=== PATIENT | male | born 1960 | race Caucasian/White ===

== ENCOUNTER 2021-01-23 11:36 | Emergency (ER) | payer OTHER ==
--- OUTSIDE RECORDS SUMMARY | 2021-01-23 11:39 | XMS REPORT | Continuity of Care Document ---
:1960 Author Organization [facility] t Address [address] [place] [address] Dr. Bales [address] [place] [id number] Care Team Providers Name Role Phone Feliciano Grace MD Attending Clinician Problems Condition Condition Condition Status Onset Resolution Last Treating Co mments Source Name Details Category Date Date Treatment Clinician Date Diabetes Diabetes Problem Active 2018-06 [place] mellitus Mellitus 2-19 da 00:00: Medical 00 Group Hyperchole Hyperchole Problem Active 2018-06 [facility] sterolemia sterolemia 2-19 da 00:00: Medical 00 Group Hypertensi Hypertensi Problem Active 2018-06 [facility] ve ve 2-19 da disorder Disorder 00:00: Medica l 00 Group Body mass Body mass Diagnosis Active [facility] index index [facility] - (BMI) (BMI) [facility] 45.0-49.9, 45.0-49.9, l adult adult Outpati ent Clinics Morbid Morbid Diagnosis Active [facility] (severe[facility] (severe[facility] - obesity obesity [facility] due to due to l excess excess Outpati calories calories ent Clinics Kidney Kidney Diagnosis Active [facility] disease disease [facility] Allergies, Adverse Reactions, Alerts Allergy Allergy Status Severity Reaction(s) Onset Inactive Treating Comm ents Source Name Type Date Date Clinician Codeine Allergy Active [place] codeine Adverse Active Info Not [facility] Reaction Available [facility] Social History Smoking Status Start Date Stop Date Source Former Smoker [facility] Medications Ordered Filled Start Stop Current Ordering Indication Dosage Frequency Signature Comments Components Source Medication Medication Date Date Medication? Clinician (SIG) Name Name citalopram citalopram No citalopram [place] 20 mg 20 mg 20 mg da tablet tablet tablet Medical Group Amoxicillin Amoxicillin Yes Roxanne as [facility] -Pot -Pot [place] directed [facility] - Clavulanate Clavulanate [facility] hydrocodone hydrocodone No hydrocodon [place] 7.5 7.5 e 7.5 da mg-acetamin mg-acetamin mg-acetami Medical ophen 325 ophen 325 nophen 325 Group mg tablet mg tablet mg tablet PRN PRN PRN Potassium Potassium Yes Roxanne [address] [facility] Bicarb-Citr Bicarb-Citr Neelam dissolve [facility] - ic Acid ic Acid in 3 to 4 Flex filippo ounces l cold water Outpati or juice ent Clinics lisinopril lisinopril No lisinopril [place] 10 10 10 da mg-hydrochl mg-hydrochl mg-hydroch Medical orothiazide orothiazide [facility] Group 12.5 mg 12.5 mg de 12.5 mg tablet tablet tablet Meloxicam Meloxicam Yes Roxanne as [facility] [place] directed [facility] meloxicam meloxicam No meloxicam [place] 15 mg 15 mg 15 mg da tablet tablet tablet Medical Group Hydrocodone Hydrocodone Yes Roxanne [address] [facility] -Acetaminop -Acetaminop Neelam as needed [facility] metoprolol metoprolol No metoprolol [place] succinate succinate succinate da ER 25 mg ER 25 mg ER 25 mg Med ical tablet,exte tablet,exte tablet,ext Group nded nded ended release 24 release 24 release 24 hr hr hr Isosorbide Isosorbide Yes Roxanne [address] [facility] Mononitrate Mononitrate [place] in the [facility] - morning [facility] l Outpati ent Clinics pantoprazol pantoprazol No pantoprazo [place] e 40 mg e 40 mg le 40 mg da tablet,jeremiah tablet,jeremiah tablet,del Medical yed release yed release ayed G roup release Pantoprazol Pantoprazol Yes Roxanne [address] [facility] e Sodium e Sodium [place] Kari es [facility] simvastatin simvastatin No simvastati [place] 40 mg 40 mg n 40 mg da tablet tablet tablet Medical Group Simvastatin Simvastatin Yes Roxanne [address] [facility] Neelam in the [facility] Stiolto Stiolto No Stiolto [place] [facility] Respimat Respimat Respimat da 2.5 mcg-2.5 2.5 mcg-2.5 2.5 M edical mcg/actuati mcg/actuati mcg-2.5 Group on solution on solution mcg/actuat for for ion inhalation inhalation solution for inhalation Metformin Metformin Yes Roxanne [address] [facility] HCl HCl [place] with a [facility] - meal [facility] Lisinopril- Lisinopril- Yes Roxanne [address] [facility] Hydrochloro Hydrochloro Neelam [facility] - thiazide thiazide [facility] aspirin 81 aspirin 81 No 1 Q1D aspirin 81 [place] mg mg mg da tablet,jeremiah tablet,jeremiah tablet,del Medical yed release yed release ayed G roup Take 1 Take 1 release tablet tablet Take 1 every day every day tablet by oral by oral every day route. route. by oral route. Vital Signs Vital Name Observation Time Observation Value Comments Source BP Diastolic 2019-05-30 00:00:00 70 mm[facility]Hg[facility] Height 2019-05-30 00:00:00 70 [facility] BMI (Body Mass 2019-05-30 00:00:00 48.9 kg/m2 [facility]) Group BP Systolic 2019-05-30 00:00:00 142 mm[Hg] [facility] Body Weight 2019-05-30 00:00:00 340.5 [lb_av] [facility] Procedures This patient has no known procedures. Encounters Start End Encounter Admission Attending Care Care Encounter Source Date/Time Date/Time Type Type Clinicians Facility Department ID 2019-07-11 2019-07-11 Office MILIND Grace [id number] 09:07:26 10:43:51 Visit Ty Wiggins AMBULATOR [id number] Y [id number] 2019-06-24 2019-06-24 [facility] [id number] [facility] [address] 10:15:00 10:15:00 t Specialty/U [facility] 2019-05-30 2019-05-30 Surjit WILSON [place] - [id number] M [facility] 00:00:00 00:00:00 Leonard James MD: Medical [facility] [address], [place] [address] , Ph. [phone] Results Test Description Test Time Test Comments Results Result Comments Source Comprehensive Metabolic Panel 2019-05-24 15:06:37 Test Item Value Reference Range Interpretation Comme nts Sodium Level (test code = 139.0 mmol/L 135.0-145.0 Sodium Level) Potassium Level (test code = 5.3 mmol/L 3.5-5.1 H Potassium Level) Chloride Level (test code = 97 mmol/L 98-105 L Chloride Level) CO2 (test code = CO2) 25 mmol/L 22-29 Anion Gap (test code = Anion 17 mmol/L 7-16 H Gap) BUN (test code = BUN) 15.70 mg/dL 6.00-20.00 Creatinine Level (test code 1.00 mg/dL 0.70-1.20 = Creatinine Level) BUN/Creat Ratio (test code = 16 N BUN/Creat Ratio) Glucose Level (test code = 98 mg/dL 70-115 Glucose Level) Calcium Level (test code = 10.2 mg/dL 8.3-10.5 Calcium Level) Alk Phos (test code = Alk 359 U/L 40-129 H Phos) Bilirubin Total (test code = 2.3 mg/dL 0.1-0.9 H Bilirubin Total) Albumin Level (test code = 3.8 g/dL 3.5-5.2 Albumin Level) Protein Total (test code = 7.2 g/dL 6.4-8.3 Protein Total) ALT (test code = ALT) 131 U/L 1-41 H AST (test code = AST) See Comments U/L 1-40 N Sp ecimen hemolyzed. AST 102 Globulin (test code = 3.4 g/dL 2.9-3.1 H Globulin) A/G Ratio (test code = A/G 1.1 ratio N Ratio) Comprehensive Metabolic [id number] 15:06:37 Test Item Value Reference Range Interpretation Comments Sodium Level (test 139.0 mmol/L 135.0-145.0 code = Sodium Level) Potassium Level 5.3 mmol/L 3.5-5.1 H (test code = Potassium Level) Chloride Level 97 mmol/L 98-105 L (test code = Chloride Level) CO2 (test code = 25 mmol/L 22-29 CO2) Anion Gap (test 17 mmol/L 7-16 H code = Anion Gap) BUN (test code = 15.70 mg/dL 6.00-20.00 BUN) Creatinine Level 1.00 mg/dL 0.70-1.20 (test code = Creatinine Level) BUN/Creat Ratio 16 N (test code = BUN/Creat Ratio) Glucose Level (test 98 mg/dL 70-115 code = Glucose Level) Calcium Level (test 10.2 mg/dL 8.3-10.5 code = Calcium Level) Alk Phos (test code 359 U/L 40-129 H = Alk Phos) Bilirubin Total 2.3 mg/dL 0.1-0.9 H (test code = Bilirubin Total) Albumin Level (test 3.8 g/dL 3.5-5.2 code = Albumin Level) Protein Total (test 7.2 g/dL 6.4-8.3 code = Protein Total) ALT (test code = 131 U/L 1-41 H ALT) AST (test code = See Comments U/L 1-40 N Specime n hemolyzed. AST) AST 102 Globulin (test code 3.4 g/dL 2.9-3.1 H = Globulin) A/G Ratio (test 1.1 ratio N code = A/G Ratio) eGFR AA (test code >60 mL/min/1.73 N eGFR ( estimated = eGFR AA) m2 Glomerular Filtration Rate ) is an estimated va lue, calculated from the patient's serum creatinine usin g the MDRD equati on. It is NOT the patient's actua l GFR. The eGFR provides a more clinically usef ul measure of kidn ey disease than se rum creatinine alone.This calculation heather es sex and race in to account, if the information is provided. If th e race is not provided, and t he patient is -Kimberly n, multiply by 1.2 12. If sex is not provided, and t he patient is fema le, multiply by 0.7 42. Results for patients <18 ye ars of age have not been validated by the MDRD study and should be interpreted wit h caution. eGFR Result Interpretation: eGFR > or = 60 is in the Normal RangeeGF R < 60 may mean kid travis diseaseeGFR < 1 5 may mean kidney failure Rang es recommended by the National Kidney Foundation, http://nkdep.ni h.go v Comprehensive Metabolic [id number] 15:06:37 Test Item Value Reference Range Interpretation Comments Sodium Level (test 139.0 mmol/L 135.0-145.0 code = Sodium Level) Potassium Level 5.3 mmol/L 3.5-5.1 H (test code = Potassium Level) Chloride Level 97 mmol/L 98-105 L (test code = Chloride Level) CO2 (test code = 25 mmol/L 22-29 CO2) Anion Gap (test 17 mmol/L 7-16 H code = Anion Gap) BUN (test code = 15.70 mg/dL 6.00-20.00 BUN) Creatinine Level 1.00 mg/dL 0.70-1.20 (test code = Creatinine Level) BUN/Creat Ratio 16 N (test code = BUN/Creat Ratio) Glucose Level (test 98 mg/dL 70-115 code = Glucose Level) Calcium Level (test 10.2 mg/dL 8.3-10.5 code = Calcium Level) Alk Phos (test code 359 U/L 40-129 H = Alk Phos) Bilirubin Total 2.3 mg/dL 0.1-0.9 H (test code = Bilirubin Total) Albumin Level (test 3.8 g/dL 3.5-5.2 code = Albumin Level) Protein Total (test 7.2 g/dL 6.4-8.3 code = Protein Total) ALT (test code = 131 U/L 1-41 H ALT) AST (test code = See Comments U/L 1-40 N Specime n hemolyzed. AST) AST 102 Globulin (test code 3.4 g/dL 2.9-3.1 H = Globulin) A/G Ratio (test 1.1 ratio N code = A/G Ratio) eGFR AA (test code >60 mL/min/1.73 N eGFR ( estimated = eGFR AA) m2 Glomerular Filtration Rate ) is an estimated va lue, calculated from the patient's serum creatinine usin g the MDRD equati on. It is NOT the patient's actua l GFR. The eGFR provides a more clinically usef ul measure of kidn ey disease than se rum creatinine alone.This calculation heather es sex and race in to account, if the information is provided. If th e race is not provided, and t he patient is -Kimberly n, multiply by 1.2 12. If sex is not provided, and t he patient is fema le, multiply by 0.7 42. Results for patients <18 ye ars of age have not been validated by the MDRD study and should be interpreted wit h caution. eGFR Result Interpretation: eGFR > or = 60 is in the Normal RangeeGF R < 60 may mean kid travis diseaseeGFR < 1 5 may mean kidney failure Rang es recommended by the National Kidney Foundation, http://nkdep.ni h.go v eGFR Non-AA (test >60.00 N eGFR (maggy mated code = eGFR Non-AA) mL/min/1.73 m2 Glomer ular Filtration Rate ) is an estimated va lue, calculated from the patient's serum creatinine usin g the MDRD equati on. It is NOT the patient's actua l GFR. The eGFR provides a more clinically usef ul measure of kidn ey disease than se rum creatinine alone.This calculation heather es sex and race in to account, if the information is provided. If th e race is not provided, and t he patient is -Kimberly n, multiply by 1.2 12. If sex is not provided, and t he patient is fema le, multiply by 0.7 42. Results for patients <18 ye ars of age have not been validated by the MDRD study and should be interpreted wit h caution. eGFR Result Interpretation: eGFR > or = 60 is in the Normal RangeeGF R < 60 may mean kid travis diseaseeGFR < 1 5 may mean kidney failure Rang es recommended by the National Kidney Foundation, http://nkdep.ni h.go v Prothrombin Time and [id number] 13:17:11 Test Item Value Reference Range Interpretation Comments Prothrombin Time (test code = 11.9 seconds 9.8-13.4 Prothrombin Time) INR (test code = INR) 1.0 ratio 0.6-1.2 Partial Thromboplastin [id number] 13:17:11 Test Item Value Reference Range Interpretation Comments Partial Thromboplastin Time 49.50 seconds 24.39-37.25 H (test code = Partial Thromboplastin Time) Complete Blood Count with [id number] 12:41:36 Test Item Value Reference Range Interpretation Comments WBC (test code = WBC) 6.0 x10 4.4-10.5 RBC (test code = RBC) 5.27 x10 4.10-5.70 Hgb (test code = Hgb) 15.3 g/dL 13.4-17.4 Hct (test code = Hct) 48.5 % 38.7-52.0 MCV (test code = MCV) 92.00 fL 80.00-100.00 MCHC (test code = 31.50 g/dL 32.00-37.50 L MCHC) RDW CV (test code = 16.6 % 11.5-14.5 H RDW CV) MCH (test code = MCH) 29.0 pg 27.0-32.5 Platelets (test code = 231.0 x10 140.0-440.0 Platelets) MPV (test code = MPV) 12.0 fL N Slide Review (test Auto Auto Result cr eated by code = Slide Review) GL_SJM_ SLIDE_REV_AUTO nRBC (test code = 0 N nRBC) NRBC Abs (test code = 0.00 x10 N NRBC Abs) IPF (test code = IPF) 0 % N Automated [id number] 12:41:36 Test Item Value Reference Range Interpretation Comments Neutro Auto (test code = Neutro 67.0 % 36.0-70.0 Auto) Lymph Auto (test code = Lymph Auto) 21.6 % 12.0-44.0 [place] Auto (test code = [place] Auto) 9.0 % 0.0-11.0 Eos, Auto (test code = Eos, Auto) 1.2 % 0.0-7.0 Basophil Auto (test code = Basophil 0.5 % 0.0-2.0 Auto) Neutro Absolute (test code = Neutro 4.0 x10 1.6-7.4 Absolute) Lymph Absolute (test code = Lymph 1.29 x10 .50-4.60 Absolute) [place] Absolute (test code = [place] .54 x10 .00-1.20 Absolute) Eos Absolute (test code = Eos 0.07 x10 0.00-0.74 Absolute) Baso Absolute (test code = Baso 0.03 x10 0.00-0.21 Absolute) IG [id number] 12:41:36 Test Item Value Reference Range Interpretation Comments IG (test code = IG) 0.7 % 0.0-5.0 IG Abs (test code = IG Abs) 0 x10 N
--- NOTE | 2021-01-23 14:55 | RAD REPORT ---
EXAM DESCRIPTION: RAD - Chest Single View - 01/23/2021 2:24 pm CLINICAL HISTORY: COUGH, chest pain COMPARISON: July 2015 TECHNIQUE: AP portable chest image was obtained 01/23/2021 2:24 pm . FINDINGS: Exam is limited by the extent of overlying soft tissues. Minimal infiltrate in the right u pper lobe abutting the minor fissure is seen. There does appear to be patchy left lower lung field in filtrate as well. No large dense consolidation present. Mediastinum is widened by slight rotation. Th is is not significantly different from comparison. Heart and vasculature are normal. No measurable pl eural effusion and no pneumothorax. No acute bony abnormality seen. No acute aortic findings suspecte d. IMPRESSION: Minimal bilateral pneumonia findings are evident. In the current clinical environment, a COVID-19 pneumonia is not excluded and needs correlation with clinical presentation and testing.
[2021-01-23 15:09] LABS: SARS-COV-2 RT PCR POSITIVE (NEGATIVE)
[2021-01-23] MEDS ORDERED: NA CHLORIDE 0.9% 1,000 ML ONE (16:32)
[2021-01-23] MEDS ORDERED: METHYLPREDNISOLONE 125 MG INJ ONE (16:32)
[2021-01-23] MEDS ORDERED: NA CHLORIDE 0.9% 250 ML ONE (16:32)
[2021-01-23] MEDS ORDERED: CASIRIVIMAB/IMDEVIMAB 10 ML VIAL ONE (16:33)
[2021-01-23 17:06] LABS: Absolute Lymphocytes (CBC) 0.6 K/uL (0.7-4.9); Basophils % 0.2 % (0-1.3); Hematocrit 41.6 % (39.6-49.0); Lymphocytes % 18.1 % (15.3-44.8); MPV 9.5 fL (7.6-11.3); RBC Red Blood Cell Count 4.64 M/uL (4.33-5.43)
[2021-01-23 17:12] LABS: Protime INR 1.21
[2021-01-23 17:26] LABS: ALT/SGPT 68 U/L (12-78); AST/SGOT 58 U/L (15-37); Albumin 3.2 g/dL (3.4-5.0); Alkaline Phosphatase 121 U/L (45-117); BUN Blood Urea Nitrogen 17 mg/dL (7-18); Bicarbonate 28 mmol/L (21-32); Bilirubin Direct 0.5 mg/dL (0-0.2); Bilirubin Total 1.1 mg/dL (0.2-1.0); Ferritin 328.3 ng/mL (26-388); Glucose Level 89 mg/dL (74-106); Magnesium 1.8 mg/dL (1.8-2.4); NT PRO-BNP 53 pg/mL (<125); Protein, Total 7.9 g/dL (6.4-8.2); Sodium Level 136 mmol/L (136-145); Troponin (Emerg Dept Use Only) < 0.02 ng/mL (0.0-0.045)
--- NOTE | 2021-01-23 19:35 | RAD REPORT ---
EXAM DESCRIPTION: CT - Chest For Pe Angio - 01/23/2021 6:41 pm CLINICAL HISTORY: Cough;SOB COMPARISON: Chest Single View dated 01/23/2021 TECHNIQUE: Dynamically enhanced 3 mm thick images of the chest were obtained during administration o f approximately 150mL Isovue 370 IV contrast. Coronal and oblique MIP reconstruction images were gene rated and reviewed. Exam utilizes a protocol to evaluate the pulmonary arterial tree. All CT scans are performed using dose optimization technique as appropriate and may include automated exposure control or mA/KV adjustment according to patient size. FINDINGS: No pulmonary emboli are identified. The aorta as imaged shows no acute or suspicious finding. No pericardial thickening or effusion. Bilateral ground-glass airspace opacities are present in a peripheral distribution. This is a commonl y described presentation of COVID-19 pneumonia. No pleural effusion or pleural thickening. No mediastinal or hilar suspicious masses. No chest wall masses or abnormal axillary lymphadenopathy. IMPRESSION: No pulmonary emboli identified. Mild to moderate bilateral pneumonia pattern. Presentation is commonly seen in COVID-19 pneumonia and can be correlated with testing results.
[2021-01-23] MEDS ORDERED: NA CHLORIDE 0.9% 50 ML ONE (21:45)
--- NOTE | 2021-01-23 23:28 | EDPHYS ---
Physician Documentation [facility] Name: Ilia Vera Age: 60 yrs Sex: Male : 1960 Arrival Date: 01/23/2021 Time: 11:43 Bed 14 Private MD: ED Physician Hiram Bradshaw HPI: 01/23 15:35 This 60 yrs old Male presents to ER via Ambulatory with complaints of Cough, cp Congestion, Shortness Of Breath. 15:35 The patient or guardian reports cough, described as moderate, difficulty breathing. cp Onset: The symptoms/episode began/occurred 7 day(s) ago. 15:35 Severity of symptoms: in the emergency department the symptoms are actually worse. cp Modifying factors: the symptoms are aggravated by exertion. Associated signs and symptoms: Pertinent negatives: chest pain, diarrhea, fever, vomiting. 15:35 Patient reports recently testing positive for COVID-19. cp Historical: - Allergies: 13:15 Codeine; ss - PMHx: 13:15 Hypertensive disorder; "4 clogged arteries"; ss - Immunization history:: Client reports having NOT received the Covid vaccine. - Social history:: Smoking status: Patient denies any tobacco usage or history of. ROS: 15:40 Constitutional: Negative for body aches, chills, fever, poor PO intake. cp 15:40 Eyes: Negative for injury, pain, redness, and discharge. cp 15:40 Cardiovascular: Negative for chest pain, edema, palpitations. 15:40 Respiratory: Positive for cough, with no reported sputum, shortness of breath, on exertion. Negative for wheezing. 15:40 Abdomen/GI: Negative for abdominal pain, nausea, vomiting, and diarrhea. Exam: 15:45 Constitutional: The patient appears in no acute distress, alert, awake, cp non-diaphoretic, non-toxic, well developed, well nourished, obese. 15:45 Head/Face: Normocephalic, atraumatic. cp 15:45 Eyes: Periorbital structures: appear normal, Conjunctiva: normal, no exudate, no injection, Sclera: no appreciated abnormality, Lids and lashes: appear normal, bilaterally. 15:45 ENT: External ear(s): are unremarkable, Nose: is normal, Mouth: Lips: moist, Oral mucosa: pink and intact, moist, Posterior pharynx: Airway: no evidence of obstruction, patent. 15:45 Neck: ROM/movement: is normal, is supple, without pain, no range of motions limitations, no meningismus, Lymph nodes: no appreciated lymphadenopathy. 15:45 Chest/axilla: Inspection: normal, Palpation: is normal, no crepitus, no tenderness. 15:45 Cardiovascular: Rate: normal, Rhythm: regular, Edema: is not appreciated, JVD: is not appreciated. 15:45 Respiratory: the patient does not display signs of respiratory distress, Respirations: normal, no use of accessory muscles, no retractions, Breath sounds: bronchial sounds, that are mild, are heard in the left posterior lower lobe, right posterior middle lobe and right posterior lower lobe, decreased breath sounds, are not appreciated, stridor, is not appreciated, wheezing: is not appreciated. 15:45 Abdomen/GI: Inspection: obese Palpation: abdomen is soft and non-tender, in all quadrants. 15:45 Back: pain, is absent, ROM is normal. 15:45 Neuro: Orientation: to person, place \\T\\ time. Mentation: is normal, Motor: moves all fours, strength is normal, Gait: is steady. 17:37 ECG was reviewed by the Attending Physician. cp Vital Signs: 12:00 Pulse 95; Resp 17; Pulse Ox 95% on R/A; ss 13:15 BP 125 / 75; Pulse 89; Resp 18; Temp 99.9(TE); Pulse Ox 95% on R/A; Weight 138.35 kg; ss Height 5 ft. 10 in. (177.80 cm); Pain 0/10; 15:29 Pulse 86; Pulse Ox 98% on R/A; ss 16:30 BP 123 / 63; Pulse 79; Resp 19; Pulse Ox 93% ; bp 17:30 BP 104 / 43; Pulse 73; Resp 17; Pulse Ox 92% ; bp 18:30 BP 112 / 53; Pulse 73; Resp 17; Pulse Ox 91% ; bp 20:10 Pulse Ox 85% on R/A; lp1 20:10 Pulse Ox 93% on 2 lpm NC; lp1 21:45 BP 138 / 60; Pulse 68; Resp 20; Temp 98.6(O); Pulse Ox 90% on R/A; lp1 22:00 BP 115 / 54; Pulse 64; Resp 26; Pulse Ox 89% on R/A; lp1 22:15 BP 112 / 49; Pulse 63; Resp 26; Pulse Ox 88% on R/A; lp1 22:30 BP 114 / 41; Pulse 63; Resp 24; Pulse Ox 88% on R/A; lp1 22:45 BP 108 / 48; Pulse 61; Resp 23; Pulse Ox 88% on R/A; lp1 23:00 BP 119 / 47; Pulse 59; Resp 23; Pulse Ox 90% on R/A; lp1 23:30 BP 111 / 52; Pulse 59; Resp 22; Pulse Ox 89% on R/A; lp1 08 00:00 BP 108 / 60; Pulse 55; Resp 20; Pulse Ox 89% on R/A; lp1 01/23 13:15 Body Mass Index 43.76 (138.35 kg, 177.80 cm) ss 01/23 22:30 Patient asleep lp1 MDM: 15:39 Patient medically screened. cp 16:00 Differential Diagnosis: Bronchitis Influenza Viral Syndrome Pneumonia Other respiratory cp failure. 23:27 Data reviewed: vital signs, nurses notes, lab test result(s), EKG, radiologic studies, cp CT scan, plain films. 23:27 Test interpretation: by ED physician or midlevel provider: ECG, plain radiologic cp studies. Counseling: I had a detailed discussion with the patient and/or guardian regarding: the historical points, exam findings, and any diagnostic results supporting the discharge/admit diagnosis, lab results, radiology results, the need for outpatient follow up, an senior php developer, to return to the emergency department if symptoms worsen or persist or if there are any questions or concerns that arise at home. Response to treatment: the patient's symptoms have mildly improved after treatment, and as a result, I will discharge patient. 01/23 15:10 Order name: COVID-19/FLU A+B; Complete Time: 15:27 EDMS 01/23 15:39 Order name: Basic Metabolic Panel cp 01/23 15:39 Order name: CBC with Diff cp 01/23 15:39 Order name: LFT's cp 01/23 15:39 Order name: Magnesium cp 01/23 15:39 Order name: NT PRO-BNP cp 01/23 15:39 Order name: PT-INR; Complete Time: 17:22 cp 01/23 15:39 Order name: Troponin (emerg Dept Use Only); Complete Time: 17:36 cp 14 15:39 Order name: CRP; Complete Time: 17:36 cp 01/23 17:37 Interpretation: Abnormal: C-REACTIVE PROT 28.80. cp 01/23 15:39 Order name: Ferritin; Complete Time: 17:37 cp 14 15:39 Order name: D-Dimer; Complete Time: 17:22 cp 01/23 15:39 Order name: Basic Metabolic Panel; Complete Time: 17:36 EDMS 01/23 13:18 Order name: XRAY Chest (1 view); Complete Time: 15:27 ss 14 15:39 Order name: EKG; Complete Time: 15:39 cp 01/23 15:39 Order name: Cardiac monitoring; Complete Time: 17:30 cp 01/23 15:39 Order name: EKG - Nurse/Tech; Complete Time: 17:30 cp 01/23 15:39 Order name: IV Saline Lock; Complete Time: 17:30 cp 01/23 15:39 Order name: Labs collected and sent; Complete Time: 17:30 cp 01/23 15:39 Order name: CBC with Automated Diff; Complete Time: 17:22 EDMS 14 19:01 Interpretation: Normal except: WBC 3.20; PLT 102; LYMA 0.6. cp 01/23 15:39 Order name: Liver (Hepatic) Function; Complete Time: 17:36 EDMS 01/23 19:02 Interpretation: Normal except: AST 58; ALK 121; BILIT 1.1; BILID 0.5; ALB 3.2; A/G 0.7; cp GLOB 4.7. 01/23 15:39 Order name: Magnesium; Complete Time: 17:37 EDMS 14 15:39 Order name: NT PRO-BNP; Complete Time: 17:37 EDMS 14 17:24 Order name: CT Chest For PE Angio; Complete Time: 19:37 cp 01/23 19:38 Interpretation: Report reviewed. 01/23 23:28 Order name: INCENTIVE SPIROMETRY 01/23 15:39 Order name: O2 Per Protocol; Complete Time: 17:30 cp 01/23 15:39 Order name: O2 Sat Monitoring; Complete Time: 17:30 08/14 15:41 Order name: Misc. Order: do not infuse regeneron until labs are back; Complete Time: cp 17:30 EC:37 Rate is 74 beats/min. Rhythm is regular. NV interval is normal. QRS interval is cp prolonged at 104 msec. QT interval is normal. T waves are Inverted in lead aVR. Interpreted by me. Reviewed by me. Administered Medications: 16:30 Drug: SOLU-Medrol (methylPrednisoLONE) 125 mg Route: IVP; Site: left antecubital; bp 17:30 Follow up: Response: No adverse reaction bp 16:30 Drug: NS 0.9% 500 ml Route: IV; Rate: 500 ml/hr; Site: left antecubital; bp 16:30 Drug: NS 0.9% 500 ml Route: IV; Rate: 100 ml/hr; Site: left antecubital; bp 21:45 Drug: REGEN-COV Dose Pack 120 mg/mL-120 mg/mL (EUA) 260 ml Route: IV; Rate: 1 units/hr; lp1 Site: left antecubital; 23:00 Follow up: IV Status: Completed infusion; IV Intake: 260ml lp1 Disposition: 01/24 18:37 Co-signature as Attending Physician, Hiram Bradshaw MD I agree with the assessment and tw4 plan of care. Disposition Summary: 01/23/21 23:27 Discharge Ordered Location: Home cp Problem: new cp Symptoms: have improved cp Condition: Stable cp Diagnosis - Other viral pneumonia cp - SARS-associated coronavirus as the cause of diseases classified elsewhere cp Followup: cp - With: Private Physician - When: 2 - 3 days - Reason: Recheck today's complaints Discharge Instructions: - Discharge Summary Sheet cp - How to Use an Incentive Spirometer cp - COVID-19 cp - Things to Know about the COVID-19 Pandemic - [facility] cp - 10 Things You Can Do to Manage Your COVID-19 Symptoms at Home - [facility] cp - COVID-19: Quarantine vs. Isolation - [facility] cp - Prevent the Spread of COVID-19 if You Are Sick - [facility] cp Forms: - Medication Reconciliation Form cp - Thank You Letter cp - Antibiotic Education cp - Prescription Opioid Use cp Prescriptions: - Zithromax Z-Ariel 250 mg Oral Tablet - take 1 tablet by ORAL route as directed for 5 days Day 1 - take two (2) tablets cp one time. Day 2, 3, 4 , 5 take one (1) tablet once daily.; 6 tablet; Refills: 0, Product Selection Permitted - Prednisone 20 mg Oral Tablet - take 2 tablets by ORAL route once daily for 5 days then take 1 tablet daily for cp 5 days; 15 tablet; Refills: 0, Product Selection Permitted - albuterol sulfate 90 mcg/actuation Inhalation HFA aerosol inhaler - inhale 2 puff by INHALATION route every 4-6 hours; 1 Inhaler; Refills: 0, cp Product Selection Permitted - Tessalon Perles 100 mg Oral Capsule - take 2 capsule by ORAL route every 8 hours As needed; 30 capsule; Refills: 0, cp Product Selection Permitted Signatures: Dispatcher [employer] EDMS Kinjal Valadez RN LESLIE ss Rachel Pratt RN RN lp1 Wilman Malone PA PA Delfin Hwang, RN RN bp Hiram Bradshaw MD MD tw4 Corrections: (The following items were deleted from the chart) 01/23 14:21 13:19 Influenza Screen (A \\T\\ B)+BA.LAB.BRZ ordered. EDMS EDMS 14:21 13:19 CORONAVIRUS+MR.LAB.BRZ ordered. EDMS EDMS 18:53 15:35 Onset: The symptoms/episode began/occurred 9 day(s) ago, cp cp 19:02 17:22 Normal except: WBC 3.20; PLT 102. cp cp
--- NOTE | 2021-01-23 23:28 | ER ---
Nurse's Notes [facility] Name: Ilia Vera Age: 60 yrs Sex: Male : 1960 Arrival Date: 01/23/2021 Time: 11:43 Bed 14 Private MD: Diagnosis: Other viral pneumonia;SARS-associated coronavirus as the cause of diseases classified elsewhere Presentation: 01/23 13:12 Chief complaint: Patient states: cough, shortness of breath and decreased appetite x 1 ss week. Coronavirus screen: Client presents with at least one sign or symptom that may indicate coronavirus-19. Standard/surgical mask placed on the client. Ebola Screen: Patient denies exposure to infectious person. Patient denies travel to an Ebola-affected area in the 21 days before illness onset. Initial Sepsis Screen: Does the patient meet any 2 criteria? No. Patient's initial sepsis screen is negative. Does the patient have a suspected source of infection? No. Patient's initial sepsis screen is negative. Risk Assessment: Do you want to hurt yourself or someone else? Patient reports no desire to harm self or others. Onset of symptoms was January 16, 2021. 13:12 Acuity: MERRILL 3 ss 13:12 Method Of Arrival: Ambulatory ss Triage Assessment: 15:30 General: Appears distressed, uncomfortable, obese, Behavior is calm, cooperative, bp appropriate for age. Pain: Denies pain. EENT: Reports nasal congestion. Neuro: Level of Consciousness is awake, alert, obeys commands, Oriented to Appropriate for age. Cardiovascular: No deficits noted. Respiratory: Reports shortness of breath cough that is. Respiratory: Airway is patent Respiratory effort is even. Respiratory: Breath sounds with wheezes bilaterally. GI: Abdomen is non-distended, obese. : No signs and/or symptoms were reported regarding the genitourinary system. Derm: No deficits noted. Musculoskeletal: No deficits noted. Historical: - Allergies: 13:15 Codeine; ss - PMHx: 13:15 Hypertensive disorder; "4 clogged arteries"; ss - Immunization history:: Client reports having NOT received the Covid vaccine. - Social history:: Smoking status: Patient denies any tobacco usage or history of. Screenin:25 Abuse screen: Denies threats or abuse. Denies injuries from another. Nutritional ss screening: No deficits noted. Tuberculosis screening: Never had TB. Fall Risk None identified. Assessment: 15:25 Reassessment: Patient appears in no apparent distress at this time. Patient and/or ss family updated on plan of care and expected duration. Pain level reassessed. Patient is alert, oriented x 3, equal unlabored respirations, skin warm/dry/pink. Neuro: Level of Consciousness is awake, alert, obeys commands, Oriented to person, place, time, situation. Cardiovascular: Capillary refill < 3 seconds is brisk in bilateral fingers. Respiratory: Airway is patent Respiratory effort is even, unlabored, Respiratory pattern is regular, symmetrical. Respiratory: Breath sounds are diminished in right posterior lower lobe. Derm: Skin is intact, is healthy with good turgor, Skin is dry, Skin is pink, warm \\T\\ dry. normal. Musculoskeletal: Circulation, motion, and sensation intact. Range of motion: intact in all extremities, Swelling absent. 16:30 Reassessment: SEE TRIAGE NOTE. bp 17:30 Reassessment: No changes from previously documented assessment. Patient and/or family bp updated on plan of care and expected duration. Pain level reassessed. CT PENDING. 18:32 Reassessment: No changes from previously documented assessment. Patient and/or family bp updated on plan of care and expected duration. Pain level reassessed. PT TO CT. REGEN-COV ON HOLD PENDING CT RESULTS. 20:00 Reassessment: Patient appears in no apparent distress at this time. Patient noted to be lp1 at 86% on RA, placed on 2L O2 via NC. 21:00 Reassessment: Patient appears in no apparent distress at this time. 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 21:45 Reassessment: Regeneron infusion began at this time; patient being monitored. lp1 23:30 Reassessment: Patient appears in no apparent distress at this time. Patient sitting up lp1 in recliner for comfort; respirations even, skin pink, warm, and dry. Vital Signs: 12:00 Pulse 95; Resp 17; Pulse Ox 95% on R/A; ss 13:15 BP 125 / 75; Pulse 89; Resp 18; Temp 99.9(TE); Pulse Ox 95% on R/A; Weight 138.35 kg; ss Height 5 ft. 10 in. (177.80 cm); Pain 0/10; 15:29 Pulse 86; Pulse Ox 98% on R/A; ss 16:30 BP 123 / 63; Pulse 79; Resp 19; Pulse Ox 93% ; bp 17:30 BP 104 / 43; Pulse 73; Resp 17; Pulse Ox 92% ; bp 18:30 BP 112 / 53; Pulse 73; Resp 17; Pulse Ox 91% ; bp 20:10 Pulse Ox 85% on R/A; lp1 20:10 Pulse Ox 93% on 2 lpm NC; lp1 21:45 BP 138 / 60; Pulse 68; Resp 20; Temp 98.6(O); Pulse Ox 90% on R/A; lp1 22:00 BP 115 / 54; Pulse 64; Resp 26; Pulse Ox 89% on R/A; lp1 22:15 BP 112 / 49; Pulse 63; Resp 26; Pulse Ox 88% on R/A; lp1 22:30 BP 114 / 41; Pulse 63; Resp 24; Pulse Ox 88% on R/A; lp1 22:45 BP 108 / 48; Pulse 61; Resp 23; Pulse Ox 88% on R/A; lp1 23:00 BP 119 / 47; Pulse 59; Resp 23; Pulse Ox 90% on R/A; lp1 23:30 BP 111 / 52; Pulse 59; Resp 22; Pulse Ox 89% on R/A; lp1 08 00:00 BP 108 / 60; Pulse 55; Resp 20; Pulse Ox 89% on R/A; lp1 01/23 13:15 Body Mass Index 43.76 (138.35 kg, 177.80 cm) 01/23 22:30 Patient asleep lp1 ED Course: 11:43 Patient arrived in ED. mr 13:14 Triage completed. ss 13:15 Arm band placed on left wrist. ss 14:23 XRAY Chest (1 view) In Process Unspecified. EDMS 15:25 Wilman Malone PA is PHCP. cp 15:25 Hiram Bradshaw MD is Attending Physician. cp 15:25 Patient has correct armband on for positive identification. Bed in low position. Call ss light in reach. 15:30 Delfin Tellez, RN is Primary Nurse. bp 16:30 Inserted saline lock: 20 gauge in left antecubital area, using aseptic technique. Blood bp collected. 17:30 Basic Metabolic Panel Sent. bp 17:30 CBC with Diff Sent. bp 17:30 LFT's Sent. bp 17:30 Magnesium Sent. bp 17:30 NT PRO-BNP Sent. bp 17:33 EKG done, by ED staff, reviewed by Wilman KOEHLER. jaelyn 18:41 CT Chest For PE Angio In Process Unspecified. EDVA 19:27 Primary Nurse role handed off by Delfin Tellez, LESLIE mw2 20:10 Rachel Pratt, RN is Primary Nurse. lp1 01/24 00:11 No provider procedures requiring assistance completed. lp1 00:20 IV discontinued, No redness/swelling at site. Pressure dressing applied. lp1 Administered Medications: 01/23 16:30 Drug: SOLU-Medrol (methylPrednisoLONE) 125 mg Route: IVP; Site: left antecubital; bp 17:30 Follow up: Response: No adverse reaction bp 16:30 Drug: NS 0.9% 500 ml Route: IV; Rate: 500 ml/hr; Site: left antecubital; bp 16:30 Drug: NS 0.9% 500 ml Route: IV; Rate: 100 ml/hr; Site: left antecubital; bp 21:45 Drug: REGEN-COV Dose Pack 120 mg/mL-120 mg/mL (EUA) 260 ml Route: IV; Rate: 1 units/hr; lp1 Site: left antecubital; 23:00 Follow up: IV Status: Completed infusion; IV Intake: 260ml lp1 Intake: 23:00 IV: 260ml; Total: 260ml. lp1 Outcome: 23:27 Discharge ordered by MD. norman 01/24 00:20 Discharged to home ambulatory, with friend. lp1 Condition: good Discharge instructions given to patient, Instructed on discharge instructions, follow up and referral plans. medication usage, Demonstrated understanding of instructions, follow-up care, medications, Prescriptions given X 4. 00:20 Patient left the ED. lp1 Signatures: Dispatcher [employer] [facility] Dede Bledsoe Shelby, RN RN ss Rachel Pratt, RN RN lp1 Wilman Malone PA PA cp Peltier, Brian, RN RN bp Larry Oconnor mw2 Ailyn [id number]
[2021-01-24 00:36] VITALS: TEMP 98.6
[2021-01-24 00:44] VITALS: O2SAT 89
[2021-01-24 00:45] VITALS: BP 108/60
== END 2021-01-24 00:20 | disposition home or self-care (01) ==
LOC: ER 11:36
DX: U07.1 COVID-19 (principal); J12.82 Pneumonia due to coronavirus disease 2019; B97.29 Other coronavirus as the cause of diseases classified elsewhere; I10 Essential (primary) hypertension; Z88.5 Allergy status to narcotic agent
CPT/HCPCS: 96365; 93005; 85025; 80048; 36415; 83735; 85610; 85379; 80076; 84484; 82728; 83880; 0240U; 86140; 71275; 71045; 96375; 99284; Q9967; J7050; J7040; J2930